=== PATIENT | female | born 1980 | race Caucasian/White ===

== ENCOUNTER 2017-02-04 20:38 | Inpatient (IN) | payer OTHER ==
--- NOTE | ~2017-02-04 | CO ---
Unit #: [id number] #: [id number] Patient: JOAQUIM BRAY [id number] [facility] [address] [facility]. [place], [place] [address] [id number] I MR#: [id number] NAME: JOAQUIM BRAY ROOM: 311 Age: 36 Sex: F Admission Date: 02/04/2017 : 1980 Attending Physician: Delaney Denson M.D. Primary Care Physician: Mundo Bender M.D. Consultation Date: 02/10/2017 CONSULTATION REPORT REASON FOR CONSULTATION Followup. DISCUSSION Ms. Joaquim Bray is a 36-year-old white female, seen in room 311, bed 1 on 02/10/2017 at [facility]. The patient was lying comfortably in bed, dressed casually in hospital attire. The patient made good eye contact, able to answer questions appropriately; sad and depressed, but denied any suicidal or homicidal ideation. Denied any withdrawal symptom. Reports medication is helping her. The patient is agreeable to go to a CD-IOP/inpatient 30-day program. The patient denied any psychotic symptom. The patient's vital signs are temperature 98.0, pulse 94, respiratory rate 18, blood pressure 147/95, and oxygen saturation 98%. MENTAL STATUS EXAMINATION General appearance; the patient is thin built, dressed casually in hospital attire, lying comfortably in bed. Attention span and concentration, fair. Speech, regular rate, coherent, and non-spontaneous. Oriented in time, place, and person. Mood and affect; sad, dysphoric, flat. Thought process, coherent. Thought content, the patient denied any thoughts of harming self or others. Denied any hallucination, but somewhat guarded. Recent and remote memory, fair. Language, intact. Fund of knowledge, fair. Insight and judgment, fair to slightly impaired. DIAGNOSES Psychiatric: Opioid use disorder, moderate to severe, F11.20; major depressive disorder, recurrent, kxisbxma-mi-bzlqox, F33.2. Secondary diagnosis: Deferred. Medical diagnosis: Please see H and P. ASSESSMENT/PLAN 1. Supportive psychotherapy and psychoeducation provided to the patient. 2. Educated about benefits and side effects of medication and course and prognosis of illness. 3. Advised to continue with current medication with a plan to refer the patient to a 30-day program such as [employer], [facility], or outpatient followup at -[facility] program at [facility]. The patient was given crisis line number and [facility] #[phone]. Please feel free to call if any questions, telephone #[phone]. Unit #: [id number] #: [id number] Patient: JOAQUIM BRAY Rodolfo David by... Antonella Mayen/teresa TD: 02/10/2017 22:30 JOB #: [id number] CONSULTATION REPORT Page 1 of 1 X Angelito Walsh MD X CONSULTATION REPORT
--- NOTE | ~2017-02-04 | HP ---
Unit #: [id number] #: [id number] Patient: JOAQUIM BRAY [id number] [address] [place], [place] [address] [id number] I MR#: [id number] NAME: JOAQUIM BRAY ROOM: 311 Age: 36 Sex: F Admission Date: 02/04/2017 : 1980 Attending Physician: Arabella Leonard M.D. Primary Care Physician: Mundo Bender M.D. HISTORY AND PHYSICAL ADMISSION DIAGNOSES 1. Chest pain. 2. Pneumonia. 3. IV drug abuse. 4. Fever. 5. History of spinal osteomyelitis. 6. 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 HISTORY OF PRESENT ILLNESS Ms. Bray is a 36-year-old female, claims to be a patient of Dr. Bender, who comes to the emergency room with the complaints of the chest pain. A chest x-ray and CT angio were done which both showed a left lower lobe pneumonia. She had two sets of cardiac enzymes, so far negative. She is the one with the history of MRSA infections, IV drug abuse which is unfortunately a continued issue for this lady. She tells me that she uses the meth and heroin and she injects it. She does have needle brock on her arms and feet. She tells me that the last time she injected was a couple of days ago. She also asks me if I can have Dr. Rainey to be her doctor since she tells me that Dr. Rainey had been taking care of her on the previous hospitalization and she would like him to be her doctor. She complains of some chest pain which she describes as a sharp pain in her chest which is intermittent, without any alleviating or aggravating factors. She complains of fever and chills, increasing shortness of air and dyspnea, denies any headache, dizziness, nausea, vomiting, diarrhea or abdominal pain. REVIEW OF SYSTEMS A 12-point review of systems on this patient was basically negative except as above. PAST MEDICAL HISTORY Past medical history is significant for again: 1. MRSA infections. 2. Spinal osteomyelitis. 3. Endometriosis. 4. Polysubstance abuse along with the IV drug abuse. PAST SURGICAL HISTORY Past surgical history is significant for: 1. Tubal ligation. 2. Left arm surgery for abscess, I/D. 3. Thumb surgery. Unit #: [id number] #: [id number] Patient: JOAQUIM BRAY 4. Spinal instrumentation and fusion followed by hardware removal secondary to MSSA infection. 5. Also some type of [employer] surgery. HOME MEDICATIONS I do not have any in front of me. Apparently she is noncompliant and was not taking anything at home. In the chart it is listed as Roxicodone and Augmentin at home. ALLERGIES No known drug allergies. SOCIAL HISTORY As above, continues to inject IV drugs and smokes, denies any alcohol use. FAMILY HISTORY Unremarkable. PHYSICAL EXAMINATION GENERAL: On the physical exam she is a disheveled 36-year-old female with poor dentition and needle brock along with the dermatitis on her face, not in acute distress. VITAL SIGNS: BP 111/72. Heart rate 115. Respirations 16. Temperature 102.8. HEENT: Head is atraumatic. Pupils equal, round and reactive to light. Oropharynx with very poor dentition and caries throughout along with some missing tooth. NECK: Neck is supple. No mass. No JVD. No bruits. CHEST: Chest is diminished bilaterally with some rhonchi, more diminished in the left. CARDIOVASCULAR EXAM: S1, S2. No murmurs. Tachy. ABDOMEN: Soft, nontender, nondistended. LOWER EXTREMITIES: Without any significant cyanosis, clubbing or edema. Again, there were some needle brock on her feet. NEUROLOGICALLY: Patient without any focal deficits. Lethargic but easily able to be aroused, answering questions appropriately. No focal deficits. DIAGNOSTIC STUDIES IMAGING: Chest x-ray and CT angio as above. LABORATORY: Chemistry significant for blood glucose of 155. White count 13.9, hemoglobin and hematocrit 11.2 and 34.9. Lactic acid at 1.1. ASSESSMENT AND PLAN 1. Chest pain, status post negative cardiac enzymes x2: Will ask Dr. Danielson for evaluation. Most likely patient is going to need a LETITIA to rule out subacute bacterial endocarditis. 2. Pneumonia, which had been treated and started as a healthcare-acquired pneumonia which we will continue. We will ask Dr. Becerril to evaluate since patient is with the active infection, fever and history of IV drug abuse along with the history of multiple MRSA infections. 3. History of spinal osteomyelitis in the past: Will defer to Dr. Becerril. Patient does not have any back pain currently. 4. History of methicillin-resistant Staphylococcus aureus infections in the past. 5. Intravenous drug abuse along with the polysubstance abuse: Will put on CIWA protocol. Counseled on the importance of quitting drug Unit #: [id number] #: [id number] Patient: JOAQUIM BRAY. Later on may benefit from psychiatry evaluation for rehab. 6. GI and DVT prophylaxis: Start on PPI, continue Lovenox. As above in HPI, patient personally requests Dr. Rainey to be her attending. I will try to make a contact with Dr. Rainey to see if he is interested to take over the care on this patient as the primary. Otherwise will also follow up with the patient tomorrow. Dictated by Simone Doyle M.D. OC/cf TD: 02/05/2017 20:17 JOB #: [id number] HISTORY AND PHYSICAL Page 1 of 1 X Simone Doyle MD X HISTORY AND PHYSICAL
--- NOTE | ~2017-02-04 | MR11 ---
[facility] A Service of [facility] RADIOLOGY TEXT RESULTS PATIENT: JOAQUIM SOTO LOCATION: [facility] 311- : [birth year] UNIT #: [id number] AGE: [address]: Delaney Denson MD SEX: F ORDER DR: [id number] [facility] [address] [facility] [place], [place] [address] [id number] I MR#: [id number] Acc #: [id number] NAME: JOAQUIM SOTO : 1980 SEX: F STUDY DATE/TIME: 02/06/2017 12:36 [facility] STUDY DESCRIPTION: MR Ankle Wo Contrast Rt Attending Physician: Delaney Denson M.D. Ordering Physician: Delaney Denson M.D. Primary Care Physician: Mundo Bender M.D. MRI CENTER REPORT This report is preliminary unless electronic signature is present. EXAM Right ankle MRI without contrast, 02/06/2017. HISTORY 36-year-old female with right foot pain and swelling for 2-3 days. History of drug abuse. Bacteremia. No IV contrast was given secondary to patient pulling out IV access yesterday. COMPARISON None TECHNIQUE Routine, unenhanced, multiplanar, multisequence, high field MR imaging of the right ankle was performed. FINDINGS The Achilles tendon is within normal limits. There is some mild inflammation of the retrocalcaneal bursa. The medial tendons, peroneal tendons, and anterior tendons of the ankle are intact. There is minimal increased fluid in the common peroneal tendon sheath suggesting tenosynovitis. No acute ligamentous injury identified. Sinus tarsi normal. Plantar fascia is unremarkable. The talar dome is intact. There is trace tibiotalar and subtalar effusion, nonspecific. Bone marrow signal is within normal limits. No MR evidence of osteomyelitis. There is mild edema in the visualized distal flexor analysis longus muscle. This is nonspecific and could be secondary to myositis versus muscle strain. No drainable intramuscular fluid collection. There is mild subcutaneous soft tissue edema surrounding the ankle and extending along the dorsum of the foot. This may be secondary to soft tissue cellulitis. No drainable fluid collections are identified. STS. [facility] A Service of [facility] RADIOLOGY TEXT RESULTS PATIENT: JOAQUIM SOTO LOCATION: A 311-01 : [birth year] UNIT #: [id number] AGE: [address]: Delaney Denson MD SEX: F ORDER DR: IMPRESSION 1. Mild subcutaneous soft tissue edema surrounding the ankle and extending along the dorsum of the foot. No drainable fluid collections to suggest abscess. Findings may be secondary to soft tissue cellulitis in the appropriate clinical setting. 2. No MR evidence of osteomyelitis. 3. Trace tibiotalar and subtalar effusions, nonspecific. If there is clinical concern for septic arthritis, then arthrocentesis may be considered. 4. Minimal increased fluid in the common peroneal tendon sheath suggesting tenosynovitis. Peroneal tendons are otherwise unremarkable. 5. No acute ligamentous injury. 6. Mild inflammation of the retrocalcaneal bursa. 7. There is also some mild edema noted in the visualized flexor hallucis longus muscle. This is nonspecific. Myositis versus muscle strain may be considered. Dictated by... Jose Torres M.D. THIS IS AN ELECTRONICALLY VERIFIED REPORT Jose Torres M.D. at 02/07/2017 6:26 AM DOUG/cheryl TD: 02/06/2017 15:07 JOB #: [id number] MRI CENTER REPORT Page 1 of 1 COPY
--- NOTE | ~2017-02-04 | CO ---
Unit #: [id number] #: [id number] Patient: JOAQUIM SOTO [id number] [facility] [address] [facility]. [place], [place] [address] [id number] I MR#: [id number] NAME: JOAQUIM SOTO ROOM: 311 Age: 36 Sex: F Admission Date: 02/04/2017 : 1980 Attending Physician: Delaney Denson M.D. Primary Care Physician: Mundo Bender M.D. Consultation Date: 02/09/2017 CONSULTATION REPORT REASON FOR CONSULTATION Opioid abuse, depression. HISTORY OF PRESENT ILLNESS Ms. Galarza is a 36-year-old white female, seen in room 311, bed 1 on 02/09/2017 at [facility]. The patient was somewhat sleepy after LETITIA test. The patient was able to answer questions appropriately. Mood is sad, dysphoric, withdrawn, flat affect. The patient's mom was at the bedside. The patient was admitted with IV drug abuse, pneumonia, fever, spinal osteomyelitis. The patient reported feeling sad, depressed, but denied any suicidal or homicidal ideation. Denied any psychotic symptom. The patient reported recent use of opiates, having problem with shortness of air, dizziness, headaches, nausea, vomiting, diarrhea, abdominal pain. PAST PSYCHIATRIC HISTORY Remarkable for history of substance abuse, depression, as mentioned above drug abuse opioids. No known history of any inpatient psychiatric treatment. MEDICAL HISTORY AND MEDICATION HISTORY History of chest pain, pneumonia, history of spinal osteomyelitis, methicillin-resistant Staphylococcus aureus infection in the past, intravenous drug abuse. Medication history, please refer to MAR. FAMILY HISTORY AND SOCIAL HISTORY The patient has a good support from her mom. No history of abuse. History of substance abuse as mentioned above. REVIEW OF SYSTEMS Complete review of systems unremarkable except as mentioned above. MENTAL STATUS EXAMINATION Vital signs; temperature 98.8, pulse 102, respiratory rate 18, blood pressure 115/70, oxygen saturation 98%. General appearance, the patient dressed in hospital attire, thin built, lying comfortably in bed. Attention span and concentration, fair. Speech, slow. Oriented in self and place. Mood and affect, sad and depressed. Thought process, coherent. Thought content, the patient denied any thoughts of harming self or others, but sad, depressed, withdrawn, poor eye contact. Denied any hallucination. Recent and remote memory, fair. Language, intact. Fund of knowledge, fair. Insight and judgment, fair to slightly impaired. DIAGNOSES Unit #: [id number] #: [id number] Patient: JOAQUIM SOTO Psychiatric: Opioid use disorder, severe, F11.20; mood disorder, not otherwise specified, F33.2; major depressive disorder, recurrent, moderate to severe, F33.2. Secondary diagnosis: Deferred. Medical diagnosis: Please refer to H and P. Stressors: Psychosocial stressors. ASSESSMENT/PLAN 1. Supportive psychotherapy and psychoeducation provided to the patient. 2. Educated about benefits and side effects of medication and course and prognosis of illness. 3. Agree at this time to continue with current medication. The patient is on Remeron 15 mg at bedtime and Celexa 20 mg daily. We will continue and make further adjustment of medication if needed. Plan to stabilize the patient and consider follow up in CD-IOP program. We will continue to follow. Please feel free to call if any questions, telephone #[phone]. Dictated by... Angelito Walsh M.D. MARK/teresa TD: 02/09/2017 23:12 JOB #: [id number] CONSULTATION REPORT Page 1 of 1 X Angelito Walsh MD X CONSULTATION REPORT
--- NOTE | ~2017-02-04 | EKG ---
PATIENT: JOAQUIM SOTO UNIT #: [id number] Ventricular Rate: 96 BPM Atrial Rate: 96 BPM P-R Interval: 120 ms QRS Duration: 94 ms Q-T Interval: 342 ms QTC Calculation(Bezet): 432 ms P Newcastle: 2 degrees Calculated R Newcastle: 11 degrees Calculated T Newcastle: 19 degrees Diagnosis Line: Normal sinus rhythm Diagnosis Line: Nonspecific ST and T wave abnormality Diagnosis Line: Abnormal ECG Diagnosis Line: When compared with ECG of 04-FEB-2017 20:45, Diagnosis Line: Questionable change in QRS axis Diagnosis Line: Confirmed by NADINE VARELA MD ([id number]) on 02/08/2017 Diagnosis Line: 9:57:38 PM INTERPRETING MD: AVERY BARNES
--- NOTE | ~2017-02-04 | CR72 ---
[facility] A Service of [facility] RADIOLOGY TEXT RESULTS PATIENT: JOAQUIM SOTO LOCATION: [facility] 311-01 : [birth year] UNIT #: [id number] AGE: [address]: Arabella Leonard MD SEX: F ORDER DR: [id number] [facility] [address] [place], [place] [address] [id number] E MR#: [id number] Acc #: [id number] NAME: JOAQUIM SOTO : 1980 SEX: F STUDY DATE/TIME: 02/04/2017 21:42 UNIT: [facility] ROOM: STUDY DESCRIPTION: CR Chest Single View Portable Attending Physician: Micah Varela D.O. Ordering Physician: Micah Varela D.O. Primary Care Physician: Mundo Bender M.D. MEDICAL IMAGING REPORT This report is preliminary unless electronic signature is present EXAM Portable chest. HISTORY Chronic chest pain, pain when taking deep breaths. FINDINGS Portable view of the chest demonstrates subtle parenchymal opacity in the left lower lateral lung zone that may represent an area of focal airspace disease and pneumonitis. No effusions. Heart, mediastinum unremarkable. There has been interval removal of the patient's posterior spinal fixation instrumentation. Intervertebral disc spacer noted at the T11-T12 disc level. Dictated by... Bambi Terry M.D. THIS IS AN ELECTRONICALLY VERIFIED REPORT Bambi Terry M.D. at 02/05/2017 2:05 PM Gallito TD: 02/04/2017 22:39 JOB #: [id number] MEDICAL IMAGING REPORT Page 1 of 1 COPY
--- NOTE | ~2017-02-04 | CR63 ---
[facility] A Service of [facility] RADIOLOGY TEXT RESULTS PATIENT: JOAQUIM SOTO LOCATION: [facility] 311- : [birth year] UNIT #: [id number] AGE: [address]: Delaney Denson MD SEX: F ORDER DR: [id number] [facility] [address] [place], [place] [address] [id number] I MR#: [id number] Acc #: [id number] NAME: JOAQUIM SOTO : 1980 SEX: F STUDY DATE/TIME: 02/08/2017 7:10 UNIT: [address] ROOM: [facility] STUDY DESCRIPTION: CR Chest 2 View Attending Physician: Delaney Denson M.D. Ordering Physician: Delaney Denson M.D. Primary Care Physician: Mundo Bender M.D. MEDICAL IMAGING REPORT This report is preliminary unless electronic signature is present EXAM Two-view chest HISTORY Left-sided chest, pain left lower lobe infiltrate, shortness of air, history of asthma. COMPARISON 02/04/2017 FINDINGS 2 views of the chest demonstrates diffuse consolidation left lower lobe with loss of the left hemidiaphragm. This has shown no progression the 02/04/2017 study. The right lung remains clear. Left upper extreme PICC line terminates mid SVC. The heart and mediastinum unremarkable though the left heart border obscured due to left basilar parenchymal disease. Postsurgical changes noted T11-T12 disc level from apparent discectomy with spacer. IMPRESSION Dense consolidation left lower lobe most likely representing acute infectious pneumonia. This has shown progression from 02/04/2017. Dictated by... Bambi Terry M.D. THIS IS AN ELECTRONICALLY VERIFIED REPORT Bambi Terry M.D. at 02/08/2017 3:56 PM KAPIL/antony TD: 02/08/2017 07:40 [facility] A Service of [facility] RADIOLOGY TEXT RESULTS PATIENT: JOAQUIM SOTO LOCATION: [facility] 311-01 : [birth year] UNIT #: [id number] AGE: [address]: Delaney Denson MD SEX: F ORDER DR: JOB #: [id number] MEDICAL IMAGING REPORT Page 1 of 1 COPY
--- NOTE | ~2017-02-04 | OR ---
Unit #: [id number] #: [id number] Patient: JOAQUIM SOTO [id number] [address] [address] [id number] I MR#: [id number] NAME: JOAQUIM SOTO ROOM: 311 Date of Procedure: 02/09/2017 Admission Date: 02/04/2017 Surgeon: Kandy Tucker M.D. : 1980 Attending Physician: Delaney Denson M.D. Primary Care Physician: Mundo Bender M.D. PROCEDURE OPERATIVE NOTE PROCEDURE PERFORMED Diagnostic bronchoscopy, bronchoalveolar lavage. INDICATION FOR PROCEDURE Pneumonia. PREPROCEDURE DIAGNOSIS Pneumonia. POSTPROCEDURE DIAGNOSIS Pneumonia. DETAILS OF PROCEDURE After taking consent from the patient, explaining the risks and benefits, patient was placed in the appropriate position. The bronchoscope was introduced through the oral cavity. The vocal cords appeared to be symmetrically moving toward the midline. Trachea was normal. The casey was sharp. We examined the right upper lobe, right middle lobe, right lower lobe, left upper lobe, lingula and left lower lobe. No endobronchial lesions were found. There were thick mucoid secretions in both lungs, which were therapeutically suctioned. Then, we did a bronchoalveolar lavage in the left lower lobe area with 100 mL of saline in and 20 mL back. The patient tolerated the procedure very well. No complications happened. Dictated by... Antonella Celeste/anibal TD: 02/10/2017 09:11 JOB #: [id number] Unit #: [id number] #: [id number] Patient: JOAQUIM SOTO PROCEDURE OPERATIVE NOTE Page 1 of 1 X Kandy Tucker MD PROCEDURE OPERATIVE NOTE
--- NOTE | ~2017-02-04 | CO ---
Unit #: [id number] #: [id number] Patient: JOAQUIM SOTO [id number] [address] [place], [place] [address] [id number] I MR#: [id number] NAME: JOAQUIM SOTO ROOM: 311 Age: 36 Sex: F Admission Date: 02/04/2017 : 1980 Attending Physician: Delaney Denson M.D. Primary Care Physician: Mundo Bender M.D. CONSULTATION REPORT HISTORY OF PRESENT ILLNESS This 36-year-old white female patient with history of IV drug abuse and history of multiple MRSA sepsis, was admitted with chest pains to the ER. She complains of constant chest pains. She has also complaints of dyspnea. No history of myocardial infarction or congestive heart failure. No history of rheumatic fever or congenital heart disease. The pain is a sharp pain in the middle of the chest without any radiation to arms, it is not related to exertion. She has some fever and chills. We were asked to see the patient for a possible transesophageal echocardiogram. PERSONAL HISTORY She smokes about a pack of cigarettes per day. PAST SURGICAL HISTORY Tubal ligation, I and D of abscess on the left thumb. ALLERGIES No drug allergies. FAMILY HISTORY Negative for premature coronary artery disease or sudden . REVIEW OF SYSTEMS The patient has fever and chills. All other is negative except as mentioned above. PHYSICAL EXAMINATION VITAL SIGNS: Has a blood pressure of 101/73, heart rate 102 per minute, respiratory rate 16 per minute. GENERAL APPEARANCE: The patient is well developed. HEENT: Oral mucosa without cyanosis or pallor. No xanthelasma. NECK: No JVD. CARDIOVASCULAR: Regular rate and rhythm. PMI is nondisplaced on auscultation. S1 and S2 normal. No S3, S4, murmur, rubs, or clicks noted. VASCULAR: Carotid pulses are brisk without bruit. Abdominal aorta without bruit. Femoral and pedal pulses are normal with normal pulse amplitude. LUNGS: Clear to auscultation without rales, rhonchi, or wheezes. No accessory muscle use noted. ABDOMEN: Soft and nontender. No hepatosplenomegaly. RECTAL: Deferred. EXTREMITIES: Warm and dry. No cyanosis or clubbing. No pedal edema. MUSCULOSKELETAL: No scoliosis. DERMATOLOGIC: No stasis dermatitis. Unit #: [id number] #: [id number] Patient: JOAQUIM SOTO NEUROLOGIC: Alert and oriented x3. Pleasant affect. DIAGNOSTIC STUDIES LABORATORY RESULTS: Glucose 155, BUN 12, creatinine 0.7, sodium 134, potassium 3.7, magnesium 1.6. WBC 13.9, hemoglobin 11.2, hematocrit 34.9, and platelet count 282,000. IMPRESSION Methicillin-resistant Staphylococcus aureus sepsis, possible endocarditis. PLAN The patient is on antibiotics. We will arrange for transesophageal echocardiogram on Wednesday. I have discussed indication, procedure, and possible complications of LETITIA with the patient. She is agreeable. Thank you for letting us participate in her care. Dictated by... Antonella Ramirez/teresa TD: 02/06/2017 17:33 JOB #: [id number] CONSULTATION REPORT Page 1 of 1 X Mee Mora MD CONSULTATION REPORT
--- NOTE | ~2017-02-04 | DS ---
Unit #: [id number] #: [id number] Patient: JOAQUIM BRAY [id number] [address] [place], [place] [address] [id number] I MR#: [id number] NAME: JOAQUIM BRAY ROOM: 311 Age: 36 Sex: F Admission Date: 02/04/2017 : 1980 Discharge Date: 02/10/2017 Attending Physician: Delaney Denson M.D. Primary Care Physician: Mundo Bender M.D. DISCHARGE SUMMARY PRINCIPAL DIAGNOSES 1. Sepsis secondary to right ankle cellulitis in addition #2 and #3. 2. Group A streptococcus bacteremia, likely transient. 3. Stenotrophomonas bacteremia. 4. Left lower lobe pneumonia, likely septic. 5. Severe protein malnutrition. 6. Underweight. 7. Intravenous drug abuse. 8. Methamphetamine abuse. 9. Depression. 10. Normocytic anemia. 11. Tobaccoism. CONSULTANTS 1. Dr. Becerril, Infectious Disease. 2. Dr. Tucker, Pulmonology. 3. Dr. Walsh, Psychiatry. PROCEDURES 1. LETITIA on February 09, 2017, with ejection fraction of 60%. No interatrial septal defect noted. Trace to mild mitral regurgitation. Trivial to mild tricuspid regurgitation. No clot in left atrial appendage and no evidence of vegetation. 2. A two-dimensional echocardiogram on February 06, 2017, with ejection fraction of 55%, concentric left ventricular hypertrophy, and no evidence of left ventricular mass or thrombus. 3. Bronchoscopy on February 09, 2017, with secretions bilaterally which were therapeutically suctioned. Cultures are negative. 4. Chest x-ray on February 04, 2017, with subtle parenchymal opacity in the left lower lung zone. 5. CT angiogram of the chest on February 05, 2017, without evidence of PE or aortic dissection. Pneumonia in left lower lobe and lingual with a scant amount of pleural fluid. 6. MRI of the right ankle without contrast on February 06, 2017, with mild subcutaneous soft tissue edema surrounding the ankle. No evidence of abscess. No evidence of osteomyelitis. Trace tibiotalar and subtalar effusions which are nonspecific. Minimal increased fluid in the common peroneal tendon sheath consistent with tenosynovitis. Mild inflammation of the retrocalcaneal bursa. 7. CT scan of the abdomen and pelvis without contrast on February 07, 2017, with worsening appearance of the left lung with increased pleural fluid on the left and worsening pneumonia. There is associated compressive atelectasis. Unit #: [id number] #: [id number] Patient: JOAQUIM BRAY CLINICAL HISTORY AND HOSPITAL COURSE Ms. Bray is a 36-year-old female who presented to the emergency department with complaints of chest pain. Chest x-ray and CT angiogram of the chest were done in the emergency department revealing left lower lobe pneumonia. Upon presentation, patient's white blood cell count was elevated at 14.6. She was placed on IV antibiotics and subsequently admitted. In regards to patient's pneumonia, Infectious Disease was consulted given patient has a history of MRSA bacteremia due to IV drug abuse. Patient was placed on empiric antibiotics. Upon further clinical exam, she was found to have a cellulitis of the right ankle. She underwent MRI which did not reveal any septic arthritis nor any evidence of osteomyelitis. However, her blood cultures returned one of two with Stenotrophomonas and one of two with Group A streptococcus. She underwent a LETITIA and a CT scan of the abdomen to rule perhaps identify a localized cause, but this was negative. The plan is complete oral antibiotics for another one week. I will note, fever has resolved, and leukocytosis has also resolved. She has been counseled regarding IV drug abuse. In regards to patient's pneumonia, Dr. Tucker was also consulted. She underwent bronchoscopy but culture has been negative. She had significant associated pleuritic chest pain for which the patient has been maintained on NSAIDS and narcotics during hospitalization. I will give her a short course of narcotics upon discharge. Patient does have significant protein malnutrition. She has been encouraged several times to eat. I did place her on Remeron to help with her poor sleeping habits, and hopefully over time this will also increase her appetite. Patient was seen in consultation by Dr. Walsh given she has a significantly flat affect and appears to be horribly depressed to me. She has been placed on Celexa and again, Remeron, and she can follow up with [facility] as [facility] outpatient. DISCHARGE CONDITION Stable. DISCHARGE STATUS Discharge to home. DISCHARGE MEDICATIONS 1. Amoxicillin 875 mg p.o. b.i.d. for 7 days. 2. Levaquin 750 mg daily for 7 days. 3. Oxycodone 5 mg 1-2 tablets p.o. q.4 hours p.r.n. for pain, number given 25. 4. Remeron 15 mg at bedtime, refilled for one month. 5. Celexa 20 mg daily, refilled for one month. DISCHARGE INSTRUCTIONS 1. Patient was instructed to follow a regular, high-calorie, high-protein diet. 2. She can increase her activity as tolerated. 3. She is to refrain from any further drug use and refrain from any tobacco use. FOLLOWUP Unit #: [id number] #: [id number] Patient: JOAQUIM BRAY 1. Patient will follow up with Dr. Tucker in two weeks. She needs a followup chest x-ray done in two to three weeks as well to insure pneumonia is improving. 2. She can [facility] two weeks as well. Time spent on discharge 28 minutes. Dictated by... Delaney Denson M.D. SHABNAM/cynthia TD: 02/11/2017 21:57 JOB #: [id number] DISCHARGE SUMMARY Page 1 of 1 X Delaney Denson MD X DISCHARGE SUMMARY
--- NOTE | ~2017-02-04 | CT4 ---
[facility] A Service of [facility] RADIOLOGY TEXT RESULTS PATIENT: JOAQUIM SOTO LOCATION: [facility] 311- : [birth year] UNIT #: [id number] AGE: [address]: Delaney Denson MD SEX: F ORDER DR: [id number] [facility] [address] [address] [facility] [place], [place] [address] [id number] I MR#: [id number] Acc #: [id number] NAME: JOAQUIM SOTO : 1980 SEX: F STUDY DATE/TIME: 02/07/2017 18:44 [facility]OM: [facility] STUDY DESCRIPTION: CT Abd and Pelv Wo Cont Attending Physician: Delaney Denson M.D. Ordering Physician: Earnest Cueva M.D. Primary Care Physician: Mundo Bender M.D. MEDICAL IMAGING REPORT This report is preliminary unless electronic signature is present EXAM Abdomen and pelvis CT, no contrast, 02/07/2017 INDICATIONS 36-year-old female with left upper quadrant pain and bacteremia with shortness of air. Sepsis in the right ankle. Symptom onset 02/04/2017. TECHNIQUE Noncontrast abdomen and pelvis CT was performed. Correlation is made with chest CT PE protocol 02/05/2017. This CT exam was performed with one or more of the following radiation dose reduction techniques: Automatic exposure control, adjustment of mA and/or kV according to patient size, and iterative reconstruction. FINDINGS CT ABDOMEN: Exam degraded by noncontrast technique. Included right lung is clear. There is a moderate-sized pleural effusion on the left, new since the prior study. It may be partially loculated. There is consolidation in the left lung base that is also new, compared to the prior study. Redemonstration of pneumonia in the lingula and superior segment left lower lobe. The new consolidation on the left may represent new compressive atelectasis or pneumonia as well. Findings are worse compared to the prior study, no pneumothorax. Trace pericardial fluid. Aorta unremarkable. The spleen and adrenal glands are unremarkable. Pancreas unremarkable. Gallbladder contracted. Liver unremarkable. There are nonobstructing stones in the left kidney. No hydronephrosis on either side. CT PELVIS: Bladder unremarkable. Ureters not well visualized or assessed. No adnexal mass or free fluid or drainable fluid collection in the pelvis. Appendix normal. Inguinal canals are unremarkable. Reactive-appearing pelvic and inguinal lymph nodes. No free air. No STS. [facility] A Service of [facility] / [facility] RADIOLOGY TEXT RESULTS PATIENT: JOAQUIM SOTO LOCATION: A 311- : 78 UNIT #: [id number] AGE: [address]: Delaney Denson MD SEX: F ORDER DR: suspicious bone lesion. The patient is status post fusion of T11-12. IMPRESSION 1. Worsening appearance of the left lung, with increased pleural fluid on the left and worsening pneumonia and probable associated compressive atelectasis in the left lung base since the prior study. A portion of the pleural fluid may be partially loculated. No pneumothorax. 2. Nonobstructing stones in the kidneys. 3. The appendix is normal. 4. No bowel obstruction. Dictated by... Kenroy Cardoso M.D. THIS IS AN ELECTRONICALLY VERIFIED REPORT Kenroy Cardoso M.D. at 02/07/2017 10:49 PM JAIME/cooper TD: 02/07/2017 21:48 JOB #: [id number] MEDICAL IMAGING REPORT Page 1 of 1 COPY
--- NOTE | ~2017-02-04 | CT16 ---
[facility] A Service of [facility] & [facility] RADIOLOGY TEXT RESULTS PATIENT: JOAQUIM SOTO LOCATION: [facility] 311- : 76 UNIT #: [id number] AGE: [address]: Jon Agarwal MD SEX: F ORDER DR: [id number] [facility] [address] [facility]. [place], [place] [address] [id number] I MR#: [id number] Acc #: [id number] NAME: JOAQUIM SOTO : 1980 SEX: F STUDY DATE/TIME: 02/05/2017 00:34 UNIT: [address] ROOM: [facility] STUDY DESCRIPTION: CT Angio Chest for PE Attending Physician: Jon Agarwal M.D. Ordering Physician: Micah Varela D.O. Primary Care Physician: Mundo Bender M.D. MEDICAL IMAGING REPORT This report is preliminary unless electronic signature is present EXAM Chest CTA, 02/05 at 00:34 INDICATIONS Chest and heart pain since noon yesterday with some shortness of air. Pain currently rates 10 out of 10. History of emphysema. TECHNIQUE Axial images were obtained through the chest following IV contrast administration. 3-D reformats were obtained. Comparison made with 08/25/2012. This CT exam was performed with one or more of the following radiation dose reduction techniques: Automatic exposure control, adjustment of mA and/or kV according to patient size, and iterative reconstruction. FINDINGS There is no pulmonary embolism or aortic dissection. There is no adenopathy. No pericardial effusion. There is a scant amount of left side pleural fluid. There is consolidating pneumonia in the left lower lobe and lingula. There is some mild dependent atelectasis in both lungs. Patient is status post T11-12 fusion. Patient is also status post bilateral augmentation mammoplasty. IMPRESSION 1. No pulmonary embolism or aortic dissection. 2. Pneumonia in the left lower lobe and lingula with a scant amount of left side pleural fluid. Dictated by... Isaias Lockwood Jr., M.D. THIS IS AN ELECTRONICALLY VERIFIED REPORT STS. [facility] A Service of [facility] & [facility] RADIOLOGY TEXT RESULTS PATIENT: JOAQUIM SOTO LOCATION: [facility] 311-01 : [birth year] UNIT #: [id number] AGE: [address]: Jon Agarwal MD SEX: F ORDER DR: Isaias Lockwood Jr., M.D. at 02/05/2017 5:35 AM JAVID/cooper TD: 02/05/2017 02:18 JOB #: [id number] MEDICAL IMAGING REPORT Page 1 of 1 COPY
--- NOTE | ~2017-02-04 | CO ---
Unit #: [id number] #: [id number] Patient: JOAQUIM SOTO [id number] [address] [place], [place] [address] [id number] I MR#: [id number] NAME: JOAQUIM SOTO ROOM: 311 Age: 36 Sex: F Admission Date: 02/04/2017 : 1980 Attending Physician: Delaney Denson M.D. Primary Care Physician: Mundo Bender M.D. Consultation Date: 02/06/2017 CONSULTATION REPORT REASON FOR CONSULTATION Fever and pneumonia. HISTORY OF PRESENT ILLNESS This is a 36-year-old female, seen by our service, one year ago. The patient has a history of both IV drug abuse as well as MRSA infection including spinal osteomyelitis, status post hardware removal, per the patient. The patient reports that she came to the hospital due to four day history of increasing shortness of breath, dyspnea, and cough. The patient has no productive cough. She has occasional chills, does not appear that the patient took her temperature while she was at home. The patient was admitted to the hospital and was found to have a left lower lobe pneumonia, leukocytosis, fever, and reports of history of IV drug abuse. The patient was started on Tobramycin, vancomycin, and Zosyn. ID was asked to evaluate for further management. Cardiology has also been consulted. Upon entering the room, the patient was initially calm but then began to complain of excessive chest pain and cough. She was difficult to obtain a history from due to complaints of pain. PAST MEDICAL HISTORY Includes, prior MRSA and infection with spinal osteomyelitis, status post hardware removal per patient, endometriosis, polysubstance abuse, and IV drug abuse. PAST SURGICAL HISTORY Includes, tubal ligation, left arm surgery for abscess, I and D one year ago, thumb surgery, spinal instrumentation and fusion hardware removal related to infection. ALLERGIES No known allergies. MEDICATIONS 1. Vancomycin 2. Tobramycin 3. Zosyn For further medications please refer to the patient's MAR. SOCIAL HISTORY The patient reports positive tobacco abuse. She denies any alcohol abuse. She does report IV drug abuse but tells me that she has not used it "recently" but will not give me a time frame. Unit #: [id number] #: [id number] Patient: JOAQUIM SOTO REVIEW OF SYSTEMS Chills, no fever documented at home. Subjective sweats, she reports positive chest pain, positive pain with cough. No significant productive sputum. She denies any nausea, vomiting, diarrhea, or abdominal discomfort. She denies any UTI symptoms. She denies any abscesses on the skin. PHYSICAL EXAMINATION VITAL SIGNS: Temperature is 99.1 with a T-max of 102.9, pulse is 102, blood pressure 101/73, and respiratory rate is 16. GENERAL: This is a no apparent distress female who does appear somewhat restless in the bed. HEENT: Her pupils are equal. NECK: Her neck is supple. CARDIOVASCULAR: S1 and S2 with tachycardia. PULMONARY: Diminished in the bases, left greater than right. No significant rhonchi or wheezes noted. ABDOMEN: Positive bowel sounds, soft, and nontender. EXTREMITIES: Multiple scabbed lesions noted but no obvious abscess. DIAGNOSTIC STUDIES LABORATORY: BUN 12, creatinine 0.7. sodium 134, potassium 3.7, chloride 101, CO2 24, bilirubin 0.3, AST 15, ALT is 12, lactic acid 1.1. White blood cell count 13.9, hemoglobin 11.2, hematocrit 34.9, platelets 282. Urine tox screen was negative for opiates, positive for amphetamines. Urinary analysis shows WBCs 5-10, with negative nitrites, trace leukocytes, no RBCs. Blood cultures 102 Gram positive cocci. Urine cultures pending. IMPRESSION A stomgg-hnnlk-gtgo-old female, with history of IV drug abuse and past MRSA infections in the past, including spinal hardware status post removal. The patient now with cough, shortness of breath, chest pain, and chills. The patient appears to have bacteremia with associated left lower lobe pneumonia on CT scan which was not consistent with any septic emboli at this time. At this time, concern is for associated bacteremia-related IV drug abuse with pneumonia. I will continue vancomycin and Zosyn, will discontinue tobramycin, will also check a strep pneumo-antigen. Cardiology has been consulted as well and plan for a LETITIA but may be able to wait until blood cultures are known. The patient does have a history of spinal osteo with no retained hardware and the patient denies spinal pain at this time. The patient does have multiple need stick brock and scabs on the skin with no obvious cutaneous abscess seen at this time but will continue to look on the skin. Thank you for allowing us to participate in the care of this patient. Further recommendations to follow pending the patient's clinical course. Dictated by... Hayde Rosales A.P.R.N. for Antonella Watkins/[place]rna TD: 02/06/2017 11:43 Unit #: [id number] #: [id number] Patient: JOAQUIM SOTO JOB #: [id number] CONSULTATION REPORT Page 1 of 1 X X CONSULTATION REPORT
--- NOTE | ~2017-02-04 | CO ---
Unit #: [id number] #: [id number] Patient: JOAQUIM SOTO [id number] [address] [place], [place] [address] [id number] I MR#: [id number] NAME: JOAQUIM SOTO ROOM: 311 Age: 36 Sex: F Admission Date: 02/04/2017 : 1980 Attending Physician: Delaney Denson M.D. Primary Care Physician: Mundo Bender M.D. CONSULTATION REPORT REASON FOR CONSULTATION Pneumonia. CHIEF COMPLAINT Fever. HISTORY OF PRESENT ILLNESS Upblfg-tromz-zyno-old female, with past medical history of IV drug use, MRSA infection, osteomyelitis, hardware removal, came to the hospital with the complaint of increasing shortness of breath and was found to have pneumonia and admitted under impression of pneumonia, started on IV antibiotics. I am seeing the patient at the bedside complaining of mild shortness of breath, generalized pain. REVIEW OF SYSTEMS Positive for pallor. No edema, no cyanosis, and no jaundice. The rest is per history of present illness as noted above. PAST SURGICAL HISTORY 1. Tubal ligation. 2. I and D of thigh abscess, hardware removal. ALLERGIES No known drug allergies. MEDICATIONS Vancomycin, tobramycin, Zosyn. SOCIAL HISTORY Denies alcohol or drug abuse, history of IV drug use. Positive for smoking. PHYSICAL EXAMINATION VITAL SIGNS: Temperature 99, pulse 87, respiration 12, and blood pressure 110/70. NEUROLOGIC: Awake, alert, and oriented. No neurologic deficit. HEENT: PERRLA. NECK: Supple. No jugular venous distention. CHEST: Bilateral air entry. Bilateral mild rhonchi. GI: Nontender. Soft. Bowel sounds are positive. EXTREMITIES: No edema. SKIN: No rash. LYMPHATICS: No lymphadenopathy. Unit #: [id number] #: [id number] Patient: JOAQUIM SOTO DIAGNOSTIC STUDIES Labs and imaging has been reviewed. ASSESSMENT/PLAN 1. Pneumonia. 2. (1) 3. IV drug use. Plan is to continue the patient on broad spectrum IV antibiotics, continue oxygen, bronchodilator, GI/DVT prophylaxis, and follow cultures, and will review the imaging. The patient may need bronchoscopy, please see orders for detailed plan. Thank you very much for this consultation. Dictated by... Antonella Celeste TD: 02/07/2017 10:21 JOB #: [id number] CONSULTATION REPORT Page 1 of 1 X Kandy Tucker MD CONSULTATION REPORT
--- NOTE | ~2017-02-04 | EKG ---
PATIENT: JOAQUIM SOTO UNIT #: [id number] Ventricular Rate: 132 BPM Atrial Rate: 132 BPM P-R Interval: 120 ms QRS Duration: 80 ms Q-T Interval: 294 ms QTC Calculation(Bezet): 435 ms P [place]: 69 degrees Calculated R [place]: 70 degrees Calculated T [place]: 49 degrees Diagnosis Line: Sinus tachycardia Diagnosis Line: Possible Left atrial enlargement Diagnosis Line: Nonspecific ST abnormality Diagnosis Line: Abnormal ECG Diagnosis Line: When compared with ECG of 25-JAN-2016 22:11, Diagnosis Line: No significant change was found Diagnosis Line: Confirmed by CARLOTTA VELÁZQUEZ MD ([id number]) on Diagnosis Line: 02/05/2017 8:54:59 AM INTERPRETING MD: EBER BARNES
[~2017-02-04 20:38] MED LIST: AMOXICILLIN500 M1 PO; AUGMENTIN875 M1 PO; BACTRIM DS TABL1 TA1 PO; BACTRIM DS TABL1 TAB PO; DAKIN'S MODIF1000 ML EXT; DAKIN'S MODIF1000 ML TOP; DOXYCYCLINE PO; FLEXERIL10 MG PO; LORTAB 10-5001 EACH PO; MINOCYCLINE HC100 M1 PO; MOTRIN600 M1 PO; NAPROXEN PO; NO MEDICATIONS; NORCO 10-325 TA1 TAB PO; PEN-VEE K PO; PERCOCET 5-3251 TAB PO; PERCOCET5/325 PO; PREDNISONE PO; PREDNISONE10 MG PO; ROXICODONE15 MG PO; ULTRAM PO; VIBRAMYCIN100 M1 PO; VOLTAREN50 MG PO; VOLTAREN75 MG PO; XARELTO15 MG PO; XARELTO20 MG PO
[2017-02-04 21:54] LABS: POC - CKMB <1.0 ng/mL (0.0-7.9); POC - TROPONIN <0.05 ng/mL (<=0.05)
[2017-02-04 21:58] LABS: BASOPHIL# 0.1 X10e3 (0-0.3); BASOPHIL% 0.5 % (0-2.5); DIFF IND NO; EOSINOPHIL% 0.1 % (0.0-7.0); HEMATOCRIT 34.9 % (35.0-45.0); HEMOGLOBIN 11.2 gm/dL (12.0-16.0); LYMPHOCYTE# 1.9 X10e3 (1.0-3.5); LYMPHOCYTE% 13.3 % (17.0-45.0); MEAN CELL VOLUME 76.3 FL (83-96); MEAN CORPUSCULAR HEMOGLOBIN 24.5 PG (28-34); MEAN CORPUSCULAR HGB CONC 32.1 g/dL (30-36); MEAN PLATELET VOLUME 7.6 FL (6.5-11.5); MONOCYTE# 0.8 X10e3 (0-1.0); MONOCYTE% 5.9 % (3.0-12.0); NEUTROPHIL# 11.2 X10e3 (1.5-7.1); NEUTROPHIL% 80.2 % (40-75); PLATELET COUNT 282 X10e3 (140-420); RED BLOOD COUNT 4.57 X10e (3.90-5.30); RED CELL DISTRIBUTION WIDTH 17.7 % (11.0-15.5); WHITE BLOOD COUNT 13.9 X10e3 (4.0-10.5)
[2017-02-04 22:06] LABS: PARTIAL THROMBOPLASTIN TIME 28.7 SECONDS (23.5-31.3); PROTHROMBIN TIME (PATIENT) 10.8 SECONDS (9.6-11.5)
[2017-02-04 22:16] LABS: ALBUMIN SERUM 3.5 g/dL (3.5-5.0); BILIRUBIN, DIRECT 0.1 mg/dL (0.0-0.2); BILIRUBIN,INDIRECT 0.2 mg/dL (0.0-0.9); BILIRUBIN,TOTAL 0.3 mg/dL (0.2-2.0); BUN/CREATININE RATIO 17.14; CALCIUM SERUM 8.7 mg/dL (8.4-10.2); CREATININE SERUM 0.7 mg/dL (0.6-1.4); GLOM FILT RATE Estimated 109.9 mL/min (>60); POTASSIUM 3.7 mmol/L (3.5-5.1); PROTEIN TOTAL SERUM 7.2 g/dL (6.0-8.3)
[2017-02-04 22:37] LABS: URINE SOURCE CLEAN CATCH
[2017-02-04 22:47] LABS: URINE APPEARANCE CLOUDY; URINE BILIRUBIN NEG (NEG); URINE BLOOD NEG (NEG); URINE COLOR YELLOW; URINE GLUCOSE NEG (NEG); URINE KETONE NEG (NEG); URINE LEUKOCYTE ESTERASE TRACE (NEG); URINE NITRATE NEG (NEG); URINE PH 7.5 (5-8); URINE PROTEIN NEG (NEG); URINE SPECIFIC GRAVITY 1.007 (1.003-1.035); URINE UROBILINOGEN 0.2 MG/DL (NEG)
[2017-02-04 22:51] LABS: CULTURE INDICATED? YES; URINE BACTERIA AUWI 2+ (NEGATIVE); URINE SQUAMOUS EPITHELIAL CELL MOD /[HPF]
[2017-02-04 23:01] LABS: AMPHETAMINE POS (NEG); BARBITURATES NEG (NEG); BENZODIAZEPINES NEG (NEG); COCAINE NEG (NEG); MARIJUANA NEG (NEG); OPIATES NEG (NEG); TRICYCLIC ANTIDEPRESSANTS NEG (NEG); U METHADONE NEG (NEG)
[2017-02-05 01:04] LABS: POC - CKMB <1.0 ng/mL (0.0-7.9); POC - TROPONIN <0.05 ng/mL (<=0.05)
[2017-02-06 18:49] LABS: HEMATOCRIT 33.5 % (35.0-45.0); HEMOGLOBIN 10.6 gm/dL (12.0-16.0); MEAN CELL VOLUME 75.6 FL (83-96); MEAN CORPUSCULAR HGB CONC 31.8 g/dL (30-36); RED BLOOD COUNT 4.43 X10e (3.90-5.30); RED CELL DISTRIBUTION WIDTH 17.3 % (11.0-15.5); WHITE BLOOD COUNT 14.6 X10e3 (4.0-10.5)
[2017-02-06 19:05] LABS: BUN/CREATININE RATIO 22.5; CALCIUM SERUM 8.5 mg/dL (8.4-10.2); CREATININE SERUM 0.4 mg/dL (0.6-1.4); GLOM FILT RATE Estimated 132.2 mL/min (>60); POTASSIUM 3.7 mmol/L (3.5-5.1)
[2017-02-07 06:53] LABS: HEMATOCRIT 30.1 % (35.0-45.0); HEMOGLOBIN 9.6 gm/dL (12.0-16.0); MEAN CELL VOLUME 75.3 FL (83-96); MEAN CORPUSCULAR HEMOGLOBIN 23.9 PG (28-34); MEAN CORPUSCULAR HGB CONC 31.8 g/dL (30-36); RED BLOOD COUNT 4.01 X10e (3.90-5.30); RED CELL DISTRIBUTION WIDTH 17.3 % (11.0-15.5); WHITE BLOOD COUNT 11.3 X10e3 (4.0-10.5)
[2017-02-07 07:22] LABS: CREATININE SERUM 0.5 mg/dL (0.6-1.4); GLOM FILT RATE Estimated 122.8 mL/min (>60); POTASSIUM 3.5 mmol/L (3.5-5.1)
[2017-02-08 06:21] LABS: HEMATOCRIT 26.9 % (35.0-45.0); HEMOGLOBIN 8.6 gm/dL (12.0-16.0); MEAN CORPUSCULAR HEMOGLOBIN 24.4 PG (28-34); MEAN CORPUSCULAR HGB CONC 32.1 g/dL (30-36); MEAN PLATELET VOLUME 8.1 FL (6.5-11.5); RED BLOOD COUNT 3.54 X10e (3.90-5.30); RED CELL DISTRIBUTION WIDTH 17.8 % (11.0-15.5); WHITE BLOOD COUNT 7.6 X10e3 (4.0-10.5)
[2017-02-08 07:16] LABS: BUN/CREATININE RATIO 26.66; CALCIUM SERUM 7.7 mg/dL (8.4-10.2); CREATININE SERUM 0.6 mg/dL (0.6-1.4); GLOM FILT RATE Estimated 115.6 mL/min (>60); POTASSIUM 3.6 mmol/L (3.5-5.1)
[2017-02-09 12:11] LABS: BODY FLUID SOURCE BRONCHIAL LAVAGE
[2017-02-09 12:12] LABS: BODY FLUID APPEARANCE HAZY
[2017-02-09 12:30] LABS: HEMATOCRIT 30.9 % (35.0-45.0); HEMOGLOBIN 9.8 gm/dL (12.0-16.0); MEAN CELL VOLUME 75.8 FL (83-96); MEAN CORPUSCULAR HEMOGLOBIN 24.1 PG (28-34); MEAN CORPUSCULAR HGB CONC 31.8 g/dL (30-36); MEAN PLATELET VOLUME 7.3 FL (6.5-11.5); RED BLOOD COUNT 4.07 X10e (3.90-5.30); RED CELL DISTRIBUTION WIDTH 17.2 % (11.0-15.5); WHITE BLOOD COUNT 10.9 X10e3 (4.0-10.5)
[2017-02-09 12:45] LABS: INR 1.1; PARTIAL THROMBOPLASTIN TIME 27.6 SECONDS (23.5-31.3); PROTHROMBIN TIME (PATIENT) 11.2 SECONDS (9.6-11.5)
[2017-02-09 12:55] LABS: CALCIUM SERUM 8.3 mg/dL (8.4-10.2); CREATININE SERUM 0.4 mg/dL (0.6-1.4); GLOM FILT RATE Estimated 132.2 mL/min (>60); POTASSIUM 3.3 mmol/L (3.5-5.1)
[2017-02-09 15:30] LABS: AMPHETAMINE NEG (NEG); BARBITURATES NEG (NEG); BENZODIAZEPINES POS (NEG); COCAINE NEG (NEG); MARIJUANA NEG (NEG); OPIATES POS (NEG); TRICYCLIC ANTIDEPRESSANTS NEG (NEG); U METHADONE NEG (NEG)
[2017-02-10 05:17] LABS: HEMATOCRIT 28.3 % (35.0-45.0); HEMOGLOBIN 9.2 gm/dL (12.0-16.0); MEAN CELL VOLUME 74.7 FL (83-96); MEAN CORPUSCULAR HEMOGLOBIN 24.3 PG (28-34); MEAN CORPUSCULAR HGB CONC 32.5 g/dL (30-36); RED BLOOD COUNT 3.8 X10e (3.90-5.30); RED CELL DISTRIBUTION WIDTH 17.3 % (11.0-15.5); WHITE BLOOD COUNT 9.2 X10e3 (4.0-10.5)
[2017-02-10 06:10] LABS: CREATININE SERUM 0.5 mg/dL (0.6-1.4); GLOM FILT RATE Estimated 122.8 mL/min (>60); POTASSIUM 3.7 mmol/L (3.5-5.1)
[2017-02-10] MEDS ORDERED: REMERON15 MG PO (18:19)
[2017-02-10] MEDS ORDERED: CELEXA20 MG PO (18:19)
[2017-02-10] MEDS ORDERED: ROXICODONE5 M1 PO (18:21)
[2017-02-10] MEDS ORDERED: LEVAQUIN750 M1 PO (18:21)
[2017-02-10] MEDS ORDERED: AMOXICILLIN875 MG PO (18:21)
== END 2017-02-10 18:43 | disposition home or self-care (01) | DRG 853 ==
LOC: CED 20:38 → CEDOF 23:40 → C3A PCU 23:40 → CEDOF 02-05 01:07 → C3A PCU 02-06 07:17
PROVIDERS: Emergency Medicine; Hospitalist; Internal Medicine; Nurse Practitioner Family; Physician Assistant Medical; Radiology Diagnostic Radiology
PROC: B32TYZZ Computerized Tomography (CT Scan) of Left Pulmonary Artery using Other Contrast (ICD-10-PCS; 2017-02-05)
PROC: B32SYZZ Computerized Tomography (CT Scan) of Right Pulmonary Artery using Other Contrast (ICD-10-PCS; 2017-02-05)
PROC: B246YZZ Ultrasonography of Right and Left Heart using Other Contrast (ICD-10-PCS; principal; 2017-02-06)
PROC: 02HV33Z Insertion of Infusion Device into Superior Vena Cava, Percutaneous Approach (ICD-10-PCS; 2017-02-06)
PROC: 4A02X4A Measurement of Cardiac Electrical Activity, Guidance, External Approach (ICD-10-PCS; 2017-02-06)
PROC: 02HV33Z Insertion of Infusion Device into Superior Vena Cava, Percutaneous Approach (ICD-10-PCS; 2017-02-06)
PROC: B548ZZA Ultrasonography of Superior Vena Cava, Guidance (ICD-10-PCS; 2017-02-06)
PROC: 0B9M8ZZ Drainage of Bilateral Lungs, Via Natural or Artificial Opening Endoscopic (ICD-10-PCS; 2017-02-09)
PROC: 0B9J8ZX Drainage of Left Lower Lung Lobe, Via Natural or Artificial Opening Endoscopic, Diagnostic (ICD-10-PCS; 2017-02-09 10:00)
DX: A40.8 Other streptococcal sepsis (principal); J18.9 Pneumonia, unspecified organism; E43 Unspecified severe protein-calorie malnutrition; F33.2 Major depressive disorder, recurrent severe without psychotic features; L03.115 Cellulitis of right lower limb; F11.20 Opioid dependence, uncomplicated; F17.210 Nicotine dependence, cigarettes, uncomplicated; Z86.14 Personal history of Methicillin resistant Staphylococcus aureus infection; F15.10 Other stimulant abuse, uncomplicated; D64.9 Anemia, unspecified; R09.1 Pleurisy
CPT/HCPCS: 36415; 71010; 71020; 71275; 73721; 74176; 80048; 80061; 80076; 80200; 80202; 80307; 81003; 82553; 83036; 83605; 84134; 84443; 84484; 84703; 85025; 85027; 85610; 85730; 87040; 87070; 87077; 87086; 87102; 87106; 87116; 87186; 87205; 87206; 87252; 87254; 87278; 87899; 88108; 88305; 88312; 89051; 93005; 93306; 93312; 96361; 96365; 97163; 99285; J0171; J0696; J1170; J1650; J1885; J1956; J2250; J2270; J2405; J2540; J2543; J3010; J3260; J3370; J3411; J7042; Q9967